=== PATIENT | male | born 1990 | race American Indian/Alaskan Native ===

== ENCOUNTER 2017-05-21 21:47 | Emergency (ER) | payer OTHER ==
[2017-05-21 21:56] VITALS: BP 138/79
[2017-05-21] MEDS ORDERED: NORCO 7.5/325 ONE (23:08)
[2017-05-21] MEDS ORDERED: NORCO 7.5/325 PO ONE (23:10)
--- NOTE | 2017-05-21 23:56 | Emergency Department Report ---
- General Chief Complaint: Laceration/Recheck/Suture Stated Complaint: FINGER LAC Time Seen by Provider: 05/21/17 23:41 Source: patient Mode of arrival: Ambulatory Limitations: No Limitations - History of Present Illness Initial Comments: 26-year-old male comes in for complaint of a laceration to the second third finger right hand. Patient reports he was through To get to the bus when he tried to jump over [place] wire and his hand slipped and he cut it on the bottom wire. Patient is not sure if he is up-to-date on his tetanus. He takes no medications on a daily basis has no known drug allergies. -: This evening Extremity Location: Right: Hand (second finger) Place: outdoors Patient Tetanus UTD: No Context: accidental Associated Symptoms: pain - Related Data Previous Rx's Medication Instructions Recorded Last Taken Type Ibuprofen [Motrin 800 MG tab] 800 mg PO Q8HR PRN #15 tablet 05/22/17 Unknown Rx Sulfamethoxazole/Trimethoprim 1 each PO BID #20 tablet 05/22/17 Unknown Rx [Bactrim Ds Tablet] Allergies Allergy/AdvReac Type Severity Reaction Status Date / Time No Known Allergies Allergy Unverified 05/21/17 21:53 ED Review of Systems ROS: Stated complaint: FINGER LAC Other details as noted in HPI Constitutional: denies: chills, fever Eyes: denies: eye pain, eye discharge, vision change ENT: denies: ear pain, throat pain Respiratory: denies: cough, shortness of breath, wheezing Cardiovascular: denies: chest pain, palpitations Endocrine: no symptoms reported Gastrointestinal: denies: abdominal pain, nausea, diarrhea Genitourinary: denies: urgency, dysuria Musculoskeletal: denies: back pain, joint swelling, arthralgia Skin: other (cut to second finger right hand). denies: rash, lesions Neurological: denies: headache, weakness, paresthesias Psychiatric: denies: anxiety, depression Hematological/Lymphatic: denies: easy bleeding, easy bruising ED Past Medical Hx - Past Medical History Previous Medical History?: Yes Hx Hypertension: Yes (No meds) - Surgical History Past Surgical History?: No - Social History Smoking Status: Current Every Day Smoker Substance Use Type: Alcohol, Marijuana - Medications Home Medications: Home Medications Medication Instructions Recorded Confirmed Last Taken Type Ibuprofen [Motrin 800 MG tab] 800 mg PO Q8HR PRN #15 tablet 05/22/17 Unknown Rx Sulfamethoxazole/Trimethoprim 1 each PO BID #20 tablet 05/22/17 Unknown Rx [Bactrim Ds Tablet] ED Physical Exam - General Limitations: No Limitations General appearance: alert, in no apparent distress - Head Head exam: Present: atraumatic, normocephalic - Eye Eye exam: Present: normal appearance - ENT ENT exam: Present: mucous membranes moist - Neck Neck exam: Present: normal inspection - Expanded Upper Extremity Exam Right General: Present: normal inspection Shoulder Exam: Present: normal inspection, full ROM Upper Arm exam: Present: normal inspection, full ROM Elbow exam: Present: normal inspection, full ROM Forearm Wrist exam: Present: normal inspection, full ROM Hand Wrist exam: Present: full ROM, tenderness, laceration (7 cm laceration to the palmar side of the second digit), erythema. Absent: swelling, ecchymosis, deformity, crepidus, dislocation Vascular: Present: vascular compromise - Back Exam Back exam: Present: normal inspection - Neurological Exam Neurological exam: Present: alert, oriented X3 - Psychiatric Psychiatric exam: Present: normal affect, normal mood - Skin Skin exam: Present: warm, dry, intact, normal color. Absent: rash ED Course Vital Signs 05/21/17 21:47 Temperature 98.1 F Pulse Rate 79 Respiratory 18 Rate Blood Pressure 138/79 O2 Sat by Pulse 96 Oximetry - Laceration /Wound Repair Left Upper Finger Wound Length (cm): 7 (palmar) Wound's Depth, Shape: into muscle Wound Explored: no foreign body removed Betadine Prep?: Yes Anesthesia: 1% Lidocaine Volume Anesthetic (ccs): 10 Wound Debrided: minimal Wound Repaired With: sutures Suture Size/Type: 3:0, proline Number of Sutures: 7 Layer Closure?: No Sterile Dressing Applied?: Yes Progress: Patient tolerated procedure well Critical care attestation.: If time is entered above; I have spent that time in minutes in the direct care of this critically ill patient, excluding procedure time. ED Disposition Clinical Impression: Laceration of finger, middle Qualifiers: Encounter type: initial encounter Damage to nail status: without damage Foreign body presence: without foreign body Laterality: right Qualified Code(s) : S61.212A - Laceration without foreign body of right middle finger without damage to nail, initial encounter Disposition: DC-01 TO HOME OR SELFCARE Is pt being admited?: No Does the pt Need Aspirin: No Condition: Stable Instructions: Finger Laceration (ED), Suture Care (ED) Additional Instructions: Please complete antibiotics as prescribed. Please return to the emergency room for suture removal and wound check in 7 days. He is return sooner if any signs of infection such as increased swelling increased pain purulent discharge Prescriptions: Ibuprofen [Motrin 800 MG tab] 800 mg PO Q8HR PRN #15 tablet PRN Reason: Pain Sulfamethoxazole/Trimethoprim [Bactrim Ds Tablet] 1 each PO BID #20 tablet Referrals: ROSALIE LARA MD [Primary Care Provider] - 3-5 Days Forms: Work/School Release Form(ED)
[2017-05-22] MEDS ORDERED: XYLOCAINE 1% 20 mL INFILTRATI ONE (00:09)
[2017-05-22] MEDS ORDERED: BOOSTRIX IM ONE (00:49)
[2017-05-22] MEDS ORDERED: MOTRIN ONE (00:55)
[2017-05-22] MEDS ORDERED: MOTRIN PO ONE (00:56)
== END 2017-05-22 01:15 | disposition home or self-care (01) ==
LOC: ED 21:47
DX: S61.212A Laceration without foreign body of right middle finger without damage to nail, initial encounter (principal); I10 Essential (primary) hypertension; F17.200 Nicotine dependence, unspecified, uncomplicated; W26.8XXA Contact with other sharp object(s), not elsewhere classified, initial encounter; Y93.89 Activity, other specified; Y92.89 Other specified places as the place of occurrence of the external cause; Y99.8 Other external cause status
CPT/HCPCS: 90471; 90715